=== PATIENT | female | born 1990 | race Caucasian/White ===

== ENCOUNTER 2018-02-09 12:44 | Inpatient (IN) | payer OTHER ==
[2018-02-09] MEDS ORDERED: Sodium Chloride 0.9% 10 ML Syringe FLUSH PRN (13:25)
[2018-02-09] MEDS ORDERED: Lactated Ringers 1,000 ML IV SCH (13:30)
[2018-02-09] MEDS ORDERED: Oxytocin/Lactated Ringers 10 UNIT/1,000 ML BAG IV SCH (13:30)
[2018-02-09] MEDS ORDERED: Lidocaine 1% 50 ML MDV ONE (15:45)
--- NOTE | 2018-02-09 17:59 | PCM.LDHP ---
L&D History of Present Illness - General Date of Service: 02/09/18 Admit Problem/Dx: Patient Status Order with Admit Dx/Problem 02/09/18 13:25 Patient Status [ADT] Routine Admission Diagnosis/Problem Admission Diagnosis/Problem Labor established Source of Information: Patient - History of Present Illness Introduction:: 27 year old at 40+ here in active labor. Contractions started early this morning. Doing well. Baby moving well. Improves with: Reports: None Worsens with: Reports: None Associated Symptoms: Reports: N - Related Data Allergies/Adverse Reactions: Allergies Allergy/AdvReac Type Severity Reaction Status Date / Time Latex, Natural Rubber Allergy Hives Verified 02/09/18 13:30 Home Medications: Home Meds Albuterol Sulfate [Proair Hfa] 1 puff IH DAILY PRN 02/09/18 [History] Ferrous Gluconate [Iron] 240 mg PO DAILY 02/09/18 [History] Fluticasone/Salmeterol [Advair Hfa 45-21 Mcg Inhaler] 1 puff IH DAILY PRN [History] Vit #76/Iron,Carb/Fa [Prenatabs Rx] 1 each PO DAILY 02/09/18 [History] Vit D3/Folic Acid/B2/B6/B12 [Folgard Tablet] 1 each PO DAILY 02/09/18 [History] Past Medical History Respiratory History: Reports: Asthma Other Respiratory History: on PRN inhalers Genitourinary History: Reports: Other (See Below) Other Genitourinary History: born with 2 extra ureters, had kidney surgery x3 in 1995 - Infectious Disease History Infectious Disease History: Reports: None - Past Surgical History Respiratory Surgical History: Reports: None Social & Family History - Family History Family Medical History: Noncontributory - Tobacco Use Smoking Status *Q: Never Smoker Second Hand Smoke Exposure: No - Caffeine Use Caffeine Use: Reports: None - Recreational Drug Use Recreational Drug Use: No H&P Review of Systems - Review of Systems: Review Of Systems: See Below General: Reports: No Symptoms HEENT: Reports: No Symptoms Pulmonary: Reports: No Symptoms Cardiovascular: Reports: No Symptoms Gastrointestinal: Reports: No Symptoms Genitourinary: Reports: No Symptoms Musculoskeletal: Reports: No Symptoms Skin: Reports: No Symptoms Psychiatric: Reports: No Symptoms Neurological: Reports: No Symptoms Hematologic/Lymphatic: Reports: No Symptoms Immunologic: Reports: No Symptoms L&D Exam - Exam Exam: See Below - Vital Signs Vital Signs: Last Vital Signs Temp 36.9 C 02/09/18 13:25 Pulse 71 02/09/18 13:25 Resp 18 02/09/18 13:25 BP 137/66 02/09/18 13:25 Pulse Ox 99 02/09/18 13:25 Weight: 76.702 kg - OB Specific Fundal Height In cm: 40 Contraction Intensity: Mild to Moderate Movement: Active Heart Tones: Present Heart Rate (FHR) Variability: Moderate (6-25 bmp) Presentation: Vertex - Dewey Score Dewey Score Cervix Position: Midposition Dewey Score Consistency: Soft Dewey Score Effacement: >80% Dewey Score Dilation: 3-4 cm Dewey Score 's Station: -2 Dewey Score Total: 9 - Exam General: Alert, Oriented HEENT: PERRLA, Conjunctiva Clear, EACs Clear, EOMI, Hearing Intact, Mucosa Moist & [place], Nares Patent, Normal Nasal Septum, Posterior Pharynx Clear, TMs Clear Neck: Supple, Trachea Midline Lungs: Clear to Auscultation, Normal Respiratory Effort Cardiovascular: Regular Rate, Regular Rhythm GI/Abdominal Exam: Normal Bowel Sounds, Soft, Non-Tender, No Organomegaly, No Distention, No Abnormal Bruit, No Mass, Pelvis Stable Rectal Exam: Normal Exam Back Exam: Normal Inspection, Full Range of Motion Extremities: Normal Inspection, Normal Range of Motion, Non-Tender, No Pedal Edema, Normal Capillary Refill Skin: Warm, Dry, Intact Neurological: Cranial Nerves Intact, Reflexes Equal Bilateral Psychiatric: Alert, Normal Affect, Normal Mood - Patient Data Lab Results Last 24 hrs: Laboratory Results - last 24 hr 02/09/18 Range/Units 13:54 WBC 12.69 H (3.98-10.04) K/mm3 RBC 3.80 L (3.98-5.22) M/mm3 Hgb 12.2 (11.2-15.7) gm/L Hct 35.1 (34.1-44.9) % MCV 92.4 (79.4-94.8) fl MCH 32.1 (25.6-32.2) pg MCHC 34.8 (32.2-35.5) g/dl RDW Std Deviation 41.8 (36.4-46.3) fL Plt Count 158 L (182-369) K/mm3 MPV 10.9 (9.4-12.3) fl Neut % (Auto) 85.9 H (34.0-71.1) % Lymph % (Auto) 8.6 L (19.3-51.7) % [place] % (Auto) 4.2 L (4.7-12.5) % Eos % (Auto) 0.9 (0.7-5.8) Baso % (Auto) 0.2 (0.1-1.2) % Neut # (Auto) 10.89 H (1.56-6.13) K/mm3 Lymph # (Auto) 1.09 L (1.18-3.74) K/mm3 [place] # (Auto) 0.53 H (0.24-0.36) K/mm3 Eos # (Auto) 0.12 (0.04-0.36) K/mm3 Baso # (Auto) 0.03 (0.01-0.08) K/mm3 Manual Slide Review Normal smear Result Diagrams: 02/09/18 13:54 Problem List Initiated/Reviewed/Updated: Yes Orders Last 24hrs: Active Orders 24 hr Category Date Time Status Patient Status [ADT] Routine ADT 02/09/18 13:25 Active Activity as Tolerated [RC] PFP Care 02/09/18 13:25 Active Communication Order [RC] ASDIRECTED Care 02/09/18 13:25 Active Heart Tones [RC] ASDIRECTED Care 02/09/18 13:27 Active Notify Provider [RC] PFP Care 02/09/18 13:25 Active Notify Provider [RC] PRN Care 02/09/18 13:25 Active Peripheral IV Care [RC] . DIRECTED Care 02/09/18 13:27 Active Vital Signs [RC] PER UNIT ROUTINE Care 02/09/18 13:25 Active Regular Diet [DIET] Diet 02/09/18 Lunch Active RAPID PLASMA REAGIN,RPR [CHEM] Stat Lab 02/09/18 13:54 Received Lactated Ringers [Ringers, Lactated] 1,000 ml Med 02/09/18 13:30 Active IV ASDIRECTED Oxytocin/Lactated Ringers [Pitocin in LR 10 Units/1,000 Med 02/09/18 13:30 Active ML] 10 unit in 1,000 ml IV .CONTINUOUS Sodium Chloride 0.9% [Saline Flush] Med 02/09/18 13:25 Active 10 ml FLUSH ASDIRECTED PRN Electronic Heart Tones Ext w TOCO [WOMSER] Oth 02/09/18 13:25 Ordered Routine Electronic Heart Tones Internal [WOMSER] Per Unit Ot 02/09/18 13:25 Ordered Routine Peripheral IV Insertion Adult [OM.PC] Routine Ot 02/09/18 13:25 Ordered Resuscitation Status Routine Resus Stat 02/09/18 13:25 Ordered Medication Orders Lactated Ringer's (Ringers, Lactated) 1,000 mls @ 100 mls/hr IV ASDIRECTED GAVIN Last Admin: 02/09/18 15:25 Dose: 100 mls/hr Oxytocin/Lactated Ringer's (Pitocin In Lr 10 Units/1,000 Ml) 10 unit in 1,000 mls @ 500 mls/hr IV .CONTINUOUS GAVIN Sodium Chloride (Saline Flush) 10 ml FLUSH ASDIRECTED PRN PRN Reason: Keep Vein Open Assessment/Plan Comment:: Term labor. Doing well. IV fluids. Anticipate unless otherwise indicated.
--- NOTE | 2018-02-09 18:07 | PCM.SN ---
- Free Text/Narrative Note: Stage I - Patient presented in active labor. Progressed to complete without augmentation. SROM clear fluid. Stage II - of viable female, weight 3590g, 8/9 APGARS at 1734. Head delivered in controlled manner over intact perineum. Body and shoulders followed atraumatically. Positive cry. Stage III - of intact placenta. 3vc. No lacerations. EBL 300
[2018-02-09] MEDS ORDERED: Benzocaine/Menthol 20%-0.5% Spray 56 GM Canister TOP PRN (18:45)
[2018-02-09] MEDS ORDERED: Lanolin 100% Cream 7 GM Tube TOP PRN (18:45)
[2018-02-09] MEDS ORDERED: Docusate Sodium 100 MG Cap PO PRN (18:45)
[2018-02-09] MEDS: Ibuprofen 600 MG Tab PO PRN (20:23)
--- NOTE | 2018-02-10 05:46 | PCM.PNPP ---
- General Info Date of Service: 02/10/18 Functional Status: Reports: Pain Controlled - Review of Systems General: Reports: No Symptoms HEENT: Reports: No Symptoms Pulmonary: Reports: No Symptoms Cardiovascular: Reports: No Symptoms Gastrointestinal: Reports: No Symptoms Genitourinary: Reports: No Symptoms Musculoskeletal: Reports: No Symptoms Skin: Reports: No Symptoms Neurological: Reports: No Symptoms Psychiatric: Reports: No Symptoms - General Info Date of Service: 02/10/18 - Patient Data Vital Signs - Most Recent: Last Vital Signs Temp 36.4 C 02/10/18 04:01 Pulse 55 L 02/10/18 04:01 Resp 14 02/10/18 04:01 BP 95/48 L 02/10/18 04:01 Pulse Ox 99 02/10/18 04:01 Weight - Most Recent: 76.702 kg I&O - Last 24 Hours: Intake & Output 02/09/18 02/09/18 02/10/18 14:59 22:59 06:59 Intake Total 1999 Balance 1999 Lab Results - Last 24 Hours: Laboratory Results - last 24 hr 02/09/18 Range/Units 13:54 WBC 12.69 H (3.98-10.04) K/mm3 RBC 3.80 L (3.98-5.22) M/mm3 Hgb 12.2 (11.2-15.7) gm/L Hct 35.1 (34.1-44.9) % MCV 92.4 (79.4-94.8) fl MCH 32.1 (25.6-32.2) pg MCHC 34.8 (32.2-35.5) g/dl RDW Std Deviation 41.8 (36.4-46.3) fL Plt Count 158 L (182-369) K/mm3 MPV 10.9 (9.4-12.3) fl Neut % (Auto) 85.9 H (34.0-71.1) % Lymph % (Auto) 8.6 L (19.3-51.7) % [place] % (Auto) 4.2 L (4.7-12.5) % Eos % (Auto) 0.9 (0.7-5.8) Baso % (Auto) 0.2 (0.1-1.2) % Neut # (Auto) 10.89 H (1.56-6.13) K/mm3 Lymph # (Auto) 1.09 L (1.18-3.74) K/mm3 [place] # (Auto) 0.53 H (0.24-0.36) K/mm3 Eos # (Auto) 0.12 (0.04-0.36) K/mm3 Baso # (Auto) 0.03 (0.01-0.08) K/mm3 Manual Slide Review Normal smear Med Orders - Current: Current Medications Benzocaine/Menthol (Dermoplast Pain Relief [place]) 0 gm TOP ASDIRECTED PRN PRN Reason: Perineal Comfort Measure Last Admin: 02/09/18 20:20 Dose: 1 canister Docusate Sodium (Colace) 100 mg PO BID PRN PRN Reason: Constipation Emollient Ointment (Lansinoh Hpa) 0 gm TOP ASDIRECTED PRN PRN Reason: Sore Nipples Ibuprofen (Motrin) 600 mg PO Q6H PRN PRN Reason: Mild pain or fever Last Admin: 02/09/18 20:23 Dose: 600 mg Discontinued Medications Lactated Ringer's (Ringers, Lactated) 1,000 mls @ 100 mls/hr IV ASDIRECTED GAVIN Last Admin: 02/09/18 15:25 Dose: 100 mls/hr Oxytocin/Lactated Ringer's (Pitocin In Lr 10 Units/1,000 Ml) 10 unit in 1,000 mls @ 500 mls/hr IV .CONTINUOUS GAVIN Last Admin: 02/09/18 17:55 Dose: 500 mls/hr Lidocaine HCl (Xylocaine 1%) Confirm Administered Dose 50 ml .ROUTE .STK-MED ONE Stop: 02/09/18 15:46 Last Admin: 02/09/18 18:45 Dose: Not Given Sodium Chloride (Saline Flush) 10 ml FLUSH ASDIRECTED PRN PRN Reason: Keep Vein Open - Infant Interaction Infant Disposition, : [place] in Room with Family Feeding: Breastfed Infant; Nursed Well - Recovery Exam Fundal Tone: Firm Fundal Level: 2 Fingerbreadths Below Umbilicus Fundal Placement: Midline Lochia Amount: Small Lochia Color: Rubra/Red Perineum Description: Intact, Minimal Bruising/Swelling Episiotomy/Laceration: None Bladder Status: Voiding Urinary Elimination: Voided - Exam General: Alert, Oriented HEENT: Pupils Equal Neck: Supple Lungs: Clear to Auscultation, Normal Respiratory Effort Cardiovascular: Regular Rate, Regular Rhythm GI/Abdominal Exam: Normal Bowel Sounds, Soft, Non-Tender, No Organomegaly, No Distention, No Abnormal Bruit, No Mass, Pelvis Stable Extremities: Normal Inspection, Normal Range of Motion, Non-Tender, No Pedal Edema, Normal Capillary Refill Neurological: No New Focal Deficit Psy/Mental Status: Alert, Normal Affect, Normal Mood - Problem List Review Problem List Initiated/Reviewed/Updated: Yes - My Orders Last 24 Hours: My Active Orders 02/09/18 13:25 Resuscitation Status Routine 02/09/18 13:54 RAPID PLASMA REAGIN,RPR [CHEM] Stat 02/09/18 18:45 Activity as Tolerated [RC] PER UNIT ROUTINE Vital Signs [RC] 09,15,21,03 Benzocaine/Menthol [Dermoplast Pain Relief [place]] See Dose Instructions TOP ASDIRECTED PRN Docusate Sodium [Colace] 100 mg PO BID PRN Ibuprofen [Motrin] 600 mg PO Q6H PRN Lanolin [Lansinoh HPA] See Dose Instructions TOP ASDIRECTED PRN Assess Lochia [WOMSER] Per Unit Routine Assess Uterine Involution [WOMSER] Per Unit Routine Breast Pump [WOMSER] Per Unit Routine Heat Therapy [OM.PC] PRN Medication Administration Instruction [OM.PC] Routine Perineal Care [OM.PC] Per Unit Routine Sitz Bath [OM.PC] Per Unit Routine 02/09/18 Lunch Regular Diet [DIET] 02/10/18 18:45 Heat Therapy [OM.PC] PRN - Assessment Assessment:: 27 year old female PPD1. Doing well. No complaints Nursing well now. - Plan Plan:: Term labor. Doing well. IV fluids. Anticipate unless otherwise indicated.
[2018-02-10] MEDS: Ibuprofen 600 MG Tab PO PRN (07:49)
--- NOTE | 2018-02-11 06:41 | PCM.DCSUM1 ---
Discharge Summary - Hospital Course Free Text/Narrative:: 27 year old PPD1. Does now desire discharge. - Discharge Data Discharge Date: 02/10/18 Discharge Disposition: Home, Self-Care 01 Condition: Good - Patient Summary/Data Hospital Course: Admitted in labor. No augmentation. Uncomplicated unmedicated . - Patient Instructions Diet: Usual Diet as Tolerated Activity: As Tolerated, No Strenuous Activities Driving: May Drive Today Showering/Bathing: May Shower Notify Provider of: Fever, Increased Pain, Swelling and Redness, Drainage, Nausea and/or Vomiting Other/Special Instructions: pelvic rest. nothing in the vagina for 6 weeks - Discharge Plan Home Medications: Home Meds Albuterol Sulfate [Proair Hfa] 1 puff IH DAILY PRN 02/09/18 [History] Fluticasone/Salmeterol [Advair Hfa 45-21 Mcg Inhaler] 1 puff IH DAILY PRN [History] Vit #76/Iron,Carb/Fa [Prenatabs Rx] 1 each PO DAILY 02/09/18 [History] Benzocaine/Menthol [Dermoplast Pain Relief [place]] 1 spray TOP ASDIRECTED PRN canister 02/10/18 [Rx] Docusate Sodium [Colace] 100 mg PO BID PRN cap 02/10/18 [Rx] Ibuprofen [Motrin] 600 mg PO Q6H PRN tablet 02/10/18 [Rx] Lanolin [Lansinoh HPA] 1 applic TOP ASDIRECTED PRN tube 02/10/18 [Rx] Patient Handouts: Home Care Instructions for Mom, Tips for a Good Latch Referrals: Lidia Mistry MD [Primary Care Provider] - 02/24/18 (call and schedule appointment with Dr. Mistry for 2 weeks) - Discharge Summary/Plan Comment DC Time >30 min.: No - General Info Date of Service: 02/10/18 Functional Status: Reports: Pain Controlled - Review of Systems General: Reports: No Symptoms HEENT: Reports: No Symptoms Pulmonary: Reports: No Symptoms Cardiovascular: Reports: No Symptoms Gastrointestinal: Reports: No Symptoms Genitourinary: Reports: No Symptoms Musculoskeletal: Reports: No Symptoms Skin: Reports: No Symptoms Neurological: Reports: No Symptoms Psychiatric: Reports: No Symptoms - Patient Data Vitals - Most Recent: Last Vital Signs Temp 37.0 C 02/10/18 14:53 Pulse 69 02/10/18 14:53 Resp 16 02/10/18 14:53 BP 116/61 02/10/18 14:53 Pulse Ox 100 02/10/18 14:53 Weight - Most Recent: 76.702 kg I&O - Last 24 hours: Intake & Output 02/10/18 02/10/18 02/11/18 14:59 22:59 06:59 Intake Total 0 Balance 0 Lab Results - Last 24 hrs: Laboratory Results - last 24 hr 02/09/18 Range/Units 13:54 RPR Non-reactive (NONREACTIVE) Med Orders - Current: Current Medications Discontinued Medications Benzocaine/Menthol (Dermoplast Pain Relief [place]) 0 gm TOP ASDIRECTED PRN PRN Reason: Perineal Comfort Measure Last Admin: 02/09/18 20:20 Dose: 1 canister Docusate Sodium (Colace) 100 mg PO BID PRN PRN Reason: Constipation Emollient Ointment (Lansinoh Hpa) 0 gm TOP ASDIRECTED PRN PRN Reason: Sore Nipples Lactated Ringer's (Ringers, Lactated) 1,000 mls @ 100 mls/hr IV ASDIRECTED GAVIN Last Admin: 02/09/18 15:25 Dose: 100 mls/hr Oxytocin/Lactated Ringer's (Pitocin In Lr 10 Units/1,000 Ml) 10 unit in 1,000 mls @ 500 mls/hr IV .CONTINUOUS GAVIN Last Admin: 02/09/18 17:55 Dose: 500 mls/hr Ibuprofen (Motrin) 600 mg PO Q6H PRN PRN Reason: Mild pain or fever Last Admin: 02/10/18 07:49 Dose: 600 mg Lidocaine HCl (Xylocaine 1%) Confirm Administered Dose 50 ml .ROUTE .STK-MED ONE Stop: 02/09/18 15:46 Last Admin: 02/09/18 18:45 Dose: Not Given Sodium Chloride (Saline Flush) 10 ml FLUSH ASDIRECTED PRN PRN Reason: Keep Vein Open - Exam General: Reports: Alert, Oriented HEENT: Reports: Pupils Equal, Pupils Reactive, EOMI, Mucous Membr. Moist/[place] Neck: Reports: Supple Lungs: Reports: Clear to Auscultation, Normal Respiratory Effort Cardiovascular: Reports: Regular Rate, Regular Rhythm GI/Abdominal Exam: Normal Bowel Sounds, Soft, Non-Tender, No Organomegaly, No Distention, No Abnormal Bruit, No Mass, Pelvis Stable Back Exam: Reports: Normal Inspection, Full Range of Motion Extremities: Normal Inspection, Normal Range of Motion, Non-Tender, No Pedal Edema, Normal Capillary Refill Skin: Reports: Warm, Dry, Intact Wound/Incisions: Reports: Healing Well Neurological: Reports: No New Focal Deficit Psy/Mental Status: Reports: Alert, Normal Affect, Normal Mood
== END 2018-02-10 20:15 | disposition home or self-care (01) | DRG 775 ==
LOC: JD.OBCHECK 12:44 → JD.OB 12:44 → JD.OBCHECK 13:25 → JD.OB 13:25 → OBSVTOIN 17:34 → JD.OB 17:34
PROVIDERS: ADMIT Obstetrics & Gynecology; ATTEND Obstetrics & Gynecology
PROC: 10E0XZZ Delivery of Products of Conception, External Approach (ICD-10-PCS; principal; 2018-02-09)
DX: O48.0 Post-term pregnancy (principal); Z37.0 Single live birth; Z3A.40 40 weeks gestation of pregnancy; Z91.040 Latex allergy status; Z79.899 Other long term (current) drug therapy; O99.52 Diseases of the respiratory system complicating childbirth; J45.909 Unspecified asthma, uncomplicated
CPT/HCPCS: 36415; 59020; 59409; 85025; 86592; A9270-GY; J2590; J7120